=== PATIENT | male | born 1975 | race Caucasian/White ===

== ENCOUNTER 2021-03-20 20:49 | Emergency (ER) | payer SELFPAY ==
[~2021-03-20] VITALS: Ht 167.6 cm; Wt 80.0 kg
[2021-03-21] MEDS ORDERED: ONDANSETRON HCL 4MG/2ML INJ IV ONE (00:30)
[2021-03-21] MEDS ORDERED: MORPHINE SULFATE 4 MG/ML CPJ (NOT FOR IM USE) IV ONE (00:30)
[2021-03-21] MEDS ORDERED: IBUP-2029 MT (03:06)
[2021-03-21 04:00] VITALS: BP 126/74
== END 2021-03-21 04:23 | disposition home or self-care (01) ==
LOC: ER 20:49
DX: S42.031A Displaced fracture of lateral end of right clavicle, initial encounter for closed fracture (principal); W01.0XXA Fall on same level from slipping, tripping and stumbling without subsequent striking against object, initial encounter; Y93.89 Activity, other specified; Y92.89 Other specified places as the place of occurrence of the external cause
CPT/HCPCS: 71045; 73030; 96374; 96375; 99284; J2270; J2405